=== PATIENT | male | born 1990 | race Caucasian/White ===

== ENCOUNTER 2017-03-20 17:26 | Emergency (ER) | payer OTHER ==
[2017-03-20 17:37] VITALS: BP 97/66
--- NOTE | 2017-03-20 18:33 | UC ---
Upper Extremity HPI - HPI Summary HPI Summary: The patient comes in today for: 1. Arm numbness with the left worse than the right and pain and only in his left arm: Onset: "a couple months"--worsening over the last 2-3 days. Palliative/provocative: Nothing makes the pain/numbness better or worse. Quality: aching, burning, tightness. Region: Upper extremities. Severity: 04/09 Time: Constant. Associated symptoms: Previous evaluation: He has not seen anyone for his arm problems. He has had lower back problems, but no one for his arm problems. 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 Medications: For his back, he takes Tramadol, Naproxen and baclofen. He states that he take a "stomach medication" also. * - History of Current Complaint Chief Complaint: UCBackPain Stated Complaint: LIMB NUMBNESS/ BURNING SENSATION Time Seen by Provider: 03/20/17 18:19 Hx Obtained From: Patient - Allergies/Home Medications Allergies/Adverse Reactions: Allergies Allergy/AdvReac Type Severity Reaction Status Date / Time Sulfa Drugs Allergy Severe Rash Verified 03/20/17 17:37 PMH/Surg Hx/FS Hx/Imm Hx Previously Healthy: No - Lower back pain. GI/ History: Gastroesophageal Reflux Other History Of: Negative For: HIV, Hepatitis B, Hepatitis C, Anticoagulant Therapy - Surgical History Surgical History: None Surgery Procedure, Year, and Place: appendectomy march 2016 - Family History Known Family History: Negative: Hypertension, Diabetes - Social History Occupation: Employed Full-time Alcohol Use: None Substance Use Type: None Smoking Status (MU): Light Every Day Tobacco Smoker Type: Cigarettes Amount Used/How Often: LESS THAN 1/2 PPD Length of Time of Smoking/Using Tobacco: 10 YRS Have You Smoked in the Last Year: Yes When Did the Patient Quit Smoking/Using Tobacco: "couple weeks ago" Household Exposure Type: Cigarettes - Immunization History Most Recent Influenza Vaccination: none Most Recent Tetanus Shot: WITHIN THE LAST 2 years Review of Systems Constitutional: Negative Skin: Negative Eyes: Negative ENT: Negative Respiratory: Negative Cardiovascular: Negative Gastrointestinal: Negative Genitourinary: Negative All Other Systems Reviewed And Are Negative: Yes Physical Exam Triage Information Reviewed: Yes Appearance: Well-Appearing, No Pain Distress, Well-Nourished Vital Signs: Initial Vital Signs Temp 98.2 F 03/20/17 17:30 Pulse 68 03/20/17 17:30 Resp 14 03/20/17 17:30 BP 97/66 03/20/17 17:30 Pulse Ox 98 03/20/17 17:30 Vital Signs Reviewed: Yes Eyes: Positive: Conjunctiva Clear. Negative: Discharge ENT: Positive: Hearing grossly normal. Negative: Pharyngeal erythema, Nasal congestion Dental: Negative: Gross Decay/Caries @, Dental Fracture @ Neck: Positive: Supple, Nontender, No Lymphadenopathy. Negative: Nuchal Rigidity Respiratory: Positive: Lungs clear, No respiratory distress, No accessory muscle use. Negative: Rhonchi, Wheezing Cardiovascular: Positive: RRR, No Murmur Abdomen Description: Positive: Nontender, No Organomegaly, Soft. Negative: Distended, Guarding, Peritoneal Signs Musculoskeletal: Positive: Strength Intact, ROM Intact, No Edema, Other: - Upper extremities. Thumbs up, pincher grasp and fist testing normal, strength of the biceps, triceps, and deltoid normal. DTR of the biceps and triceps and deltoid 2+/2 x 2. Full range of motion of the neck--flexion, extension, rotation and lateral flexion. Neurological: Positive: Alert Psychological: Positive: Age Appropriate Behavior. Negative: Consolable Skin: Negative: rashes, breakdown Upper Extremity Course/Dx - Course Course Of Treatment: Patient told of his diagnostic/treatment options. He is encouraged to see his primary care provider and a neurologist. If he gets worse , he is to go to the ER. Will start gabapentin. - Differential Dx/Diagnosis Provider Diagnoses: Bilateral arm numbness, weakness/rule out cervical herniated disk. Discharge - Discharge Plan Condition: Stable Disposition: HOME Patient Education Materials: Paresthesia (ED), Cervical Spinal Stenosis (ED) Referrals: Chante Rosado MD [Primary Care Provider] - As Soon As Possible (Please see your primary care provider as soon as you can.) Lucy Conroy MD [Medical Doctor] - As Soon As Possible (Please call Dr. Conroy's office as soon as you can for evaluation.)
== END 2017-03-20 19:14 | disposition home or self-care (01) ==
LOC: UCCORT 17:26
DX: M62.81 Muscle weakness (generalized) (principal); R20.0 Anesthesia of skin; M54.5 Low back pain; K21.9 Gastro-esophageal reflux disease without esophagitis; Z88.2 Allergy status to sulfonamides; F17.210 Nicotine dependence, cigarettes, uncomplicated
CPT/HCPCS: 99212; G0463

== ENCOUNTER 2017-05-13 17:07 | Emergency (ER) | payer OTHER ==
[2017-05-13 17:52] VITALS: BP 110/66
--- NOTE | 2017-05-13 18:02 | UC ---
Skin Complaint HPI - History of Current Complaint Chief Complaint: UCSkin Time Seen by Provider: 05/13/17 17:53 Stated Complaint: RT HAND SKIN COMPLAINT Hx Obtained From: Patient Onset/Duration: Gradual Onset - last 4 days increasing swelling and pain over the 4th finger. Wound on the cruz side., Worse Since - onset Onset Severity: Mild Current Severity: Moderate Location: Hand (Right) - 4th finger Character: Swelling, Pain, Redness Aggravating: Touch Alleviating: Nothing Associated Signs & Symptoms: Positive: Joint Swelling. Negative: Weakness, Fever, Chills, Drainage, Bruising, Red Streaks Related History: Trauma - possible on the finger - Allergy/Home Medications Allergies/Adverse Reactions: Allergies Allergy/AdvReac Type Severity Reaction Status Date / Time Sulfa Drugs Allergy Severe Rash Verified 05/13/17 17:46 Home Medications: Home Medications Baclofen TAB* [Lioresal TAB*] 10 mg PO TID 05/13/17 [History Confirmed 05/13/17] Pantoprazole TAB (NF) [Protonix TAB (NF)] 40 mg PO DAILY 05/13/17 [History Confirmed 05/13/17] Review of Systems All Other Systems Reviewed And Are Negative: Yes PMH/Surg Hx/FS Hx/Imm Hx Previously Healthy: Yes Other History Of: Negative For: HIV, Hepatitis B, Hepatitis C, Anticoagulant Therapy - Surgical History Surgical History: None Surgery Procedure, Year, and Place: appendectomy march 2016 - Family History Known Family History: Positive: Cardiac Disease Negative: Hypertension, Diabetes - Social History Occupation: Employed Full-time Lives: With Family Alcohol Use: None Substance Use Type: None Smoking Status (MU): Heavy Every Day Tobacco Smoker Type: Cigarettes Amount Used/How Often: 1/2 PPD Length of Time of Smoking/Using Tobacco: 10 YRS Have You Smoked in the Last Year: Yes When Did the Patient Quit Smoking/Using Tobacco: "couple weeks ago" Household Exposure Type: Cigarettes - Immunization History Most Recent Influenza Vaccination: none Most Recent Tetanus Shot: WITHIN THE LAST 2 years Physical Exam Triage Information Reviewed: Yes Appearance: Well-Appearing, No Pain Distress, Well-Nourished Vital Signs: Initial Vital Signs Temp 98.8 F 05/13/17 17:47 Pulse 62 05/13/17 17:47 Resp 16 05/13/17 17:47 BP 110/66 05/13/17 17:47 Pulse Ox 98 05/13/17 17:47 Vital Signs Reviewed: Yes Eyes: Positive: Conjunctiva Clear Neck exam: Normal Respiratory Exam: Normal Cardiovascular Exam: Normal Musculoskeletal: Positive: ROM Limited @ - right 4th finger with swelling and tenderness. Neurological Exam: Normal Psychological Exam: Normal Skin: Positive: Other - small open wound over the PIP ventrally Course/Dx - Differential Diagnoses - Skin Complaint Differential Diagnoses: Abscess, Cellulitis, Impetigo, Lymphangitis - Diagnoses Provider Diagnoses: cellulitis right hand Discharge - Discharge Plan Condition: Stable Disposition: HOME Prescriptions: Cephalexin CAP* [Keflex 500 CAP*] 500 mg PO QID #40 cap Patient Education Materials: Cellulitis (ED), Cephalexin (By mouth) Additional Instructions: Do warm packs to help get rid of the infection.
[2017-05-13] MEDS ORDERED: Cephalexin CAP* 500 MG PO ONE ×2 (18:05→18:13)
[2017-05-13] MEDS ORDERED: ceFUROXime TAB(*) 250 MG PO ONE (18:10)
== END 2017-05-13 18:28 | disposition home or self-care (01) ==
LOC: UCCORT 17:07
DX: L03.011 Cellulitis of right finger (principal); F17.210 Nicotine dependence, cigarettes, uncomplicated
CPT/HCPCS: 99212; A9270-GY; G0463

== ENCOUNTER 2018-01-16 15:54 | Emergency (ER) | payer OTHER ==
[2018-01-16 16:22] VITALS: BP 119/75
--- NOTE | 2018-01-16 17:17 | UC ---
Back Pain HPI - HPI Summary HPI Summary: 27 yo male with chronic LBP due to DDD and spinal stenosis He has not had imaging for around 3 yrs Miss his last appt with specialist 5 days of worsening symptom increased back pain numbness and tingling of both leg Feels like he has to urinate but has his has marked trouble initiating stream legs now occasionally buckle - History of Current Complaint Chief Complaint: UCBackPain Stated Complaint: BACK COMP Time Seen by Provider: 01/16/18 16:24 Onset/Duration: Gradual Onset, Worse Since - 5 days Timing: Constant Severity Initially: Severe Severity Currently: Severe Pain Intensity: 8 Pain Scale Used: 0-10 Numeric Back Pain: Is Diffuse, Radiates To - numbness tingling both legs Character: Throbbing Aggravating Factor(s): Movement, Lifting, Bending, Walking Alleviating Factor(s): Nothing Associated Signs And Symptoms: Positive: Numbness, Tingling, Pain with Weight Bearing. Negative: Bladder Incontinence, Bowel Incontinence - Allergies/Home Medications Allergies/Adverse Reactions: Allergies Allergy/AdvReac Type Severity Reaction Status Date / Time Sulfa (Sulfonamide Allergy Rash Verified 01/16/18 16:22 Antibiotics) Home Medications: Home Medications Gabapentin [Neurontin] 100 mg PO Q8H 01/16/18 [History Confirmed 01/16/18] PMH/Surg Hx/FS Hx/Imm Hx Previously Healthy: Yes Other History Of: Negative For: HIV, Hepatitis B, Hepatitis C, Anticoagulant Therapy - Surgical History Surgical History: None Surgery Procedure, Year, and Place: appendectomy march 2016 - Family History Known Family History: Positive: Cardiac Disease Negative: Hypertension, Diabetes - Social History Alcohol Use: None Substance Use Type: None Smoking Status (MU): Heavy Every Day Tobacco Smoker Type: Cigarettes Amount Used/How Often: 1/2 PPD Length of Time of Smoking/Using Tobacco: 10 YRS Have You Smoked in the Last Year: Yes When Did the Patient Quit Smoking/Using Tobacco: "couple weeks ago" Household Exposure Type: Cigarettes - Immunization History Most Recent Influenza Vaccination: none Most Recent Tetanus Shot: WITHIN THE LAST 2 years Review of Systems Constitutional: Negative Skin: Negative Eyes: Negative ENT: Negative Respiratory: Negative Cardiovascular: Negative Gastrointestinal: Negative Genitourinary: Negative Motor: Negative Neurovascular: Negative Musculoskeletal: Arthralgia, Myalgia Neurological: Paresthesia Psychological: Negative Is Patient Immunocompromised?: No All Other Systems Reviewed And Are Negative: Yes Physical Exam Triage Information Reviewed: Yes Appearance: Well-Appearing, Well-Nourished, Pain Distress Vital Signs: Initial Vital Signs Temp 97.5 F 01/16/18 16:18 Pulse 75 01/16/18 16:18 Resp 16 01/16/18 16:18 BP 119/75 01/16/18 16:18 Pulse Ox 100 01/16/18 16:18 Eyes: Positive: Conjunctiva Clear Neck: Positive: Supple, Nontender, No Lymphadenopathy Respiratory: Positive: Lungs clear, Normal breath sounds, No respiratory distress, No accessory muscle use Cardiovascular: Positive: RRR, No Murmur, Pulses Normal Neurological: Positive: Alert, Other: - knee jerks- hyperreflexic ankle clonus toes down going Psychological Exam: Normal Back Pain Course/Dx - Course Course Of Treatment: I relayed my concerns to pt of cental cord syndrome. He needs to drive his daughter home and then will go to the ER. to [facility] ER. Triage center notified. PT declines EMS - Differential Dx/Diagnosis Provider Diagnoses: 1. DDD. 2. SPINAL STENOSIS. 2. CONCERN OF CENTRAL CORD SYNDROME Discharge - Sign-Out/Discharge Documenting (check all that apply): Discharge - Discharge Plan Condition: Stable [facility] Referrals: Chante Rosado MD [Primary Care Provider] - Additional Instructions: You need imaging of your back that we can not do her You may have central cord syndrome Please go to [facility] ER now - Billing Disposition and Condition Condition: STABLE Disposition: EMTALA
== END 2018-01-16 17:11 | disposition short-term general hospital (02) ==
LOC: UCCORT 15:54
DX: M51.36 Other intervertebral disc degeneration, lumbar region (principal); Z87.891 Personal history of nicotine dependence; M48.061 Spinal stenosis, lumbar region without neurogenic claudication; Z88.2 Allergy status to sulfonamides
CPT/HCPCS: 99212; G0463

== ENCOUNTER 2018-01-18 14:28 | Emergency (ER) | payer OTHER ==
[2018-01-18] MEDS ORDERED: predniSONE TAB* 20 MG PO ONE (15:20)
--- NOTE | 2018-01-18 15:29 | ED ---
Back Pain - HPI Summary HPI Summary: C/O "LEGS GIVING OUT", MILD TINGLING AND ACHE IN BILAT LEGS, "BUMP" ON LOWER BACK, HAVING TO PUSH WHEN URINATING X 1 WEEK. HX OF INTERMITTENT LEGS GIVING OUT X 2 YRS, BUT STATES GETTING MORE FREQ. HX OF CHRONIC BACK PAIN, SPINAL STENOSIS, MILD DEGENERATIVE DISC DZ. WENT TO [facility] 2 DAYS AGO, ADVISED TO GO TO ED. MRI DONE [facility] ED 01/16/18 NEG FOR CAUDA EQUINA, ACUTE FX, SPINAL CORD COMPRESSION. DX WITH MUSCLE SPASM, GIVEN RX FOR VALUIM. PT HAS APPT WITH [facility] IN [place] THIS COMING SUNDAY. PT CAME INTO TO ED TODAY FOR LEGS GIVING OUT AGAIN. DENIES LOSS OF SENSATION IN BILAT LEGS. URINATED TODAY, BUT STATES HE HAS TO "PUSH". DENIES TRAUMA, FEVER, N/V, CP, SOB, ABDO PAIN, CHANGE IN BM. MED HX = SPINAL STENOSIS, DDD. PT BROUGHT IN D/C REPORT FROM [facility] ED. - History of Current Complaint Chief Complaint: EDBackInjuryPain Stated Complaint: BACK PAIN Time Seen by Provider: 01/18/18 14:50 Hx Obtained From: Patient Onset/Duration: Gradual Onset Onset/Duration: Still Present Timing: Intermittent Severity Initially: Moderate Pain Intensity: 8 Character: Aching Aggravating Symptom(s): Walking Alleviating Symptom(s): Nothing Associated Signs And Symptoms: Positive: Weakness, Tingling. Negative: Swelling , Redness, Fever, Numbness, Abdominal Pain, Flank Pain, Bladder Incontinence, Bowel Incontinence, Weight Loss - Risk Factors Cauda Equina Risk Factors: Bladder Dysfunction, Lower Extremity Weakness Epidural Abscess Risk Factors: Lower Extremity Weakness - Allergies/Home Medications Allergies/Adverse Reactions: Allergies Allergy/AdvReac Type Severity Reaction Status Date / Time Sulfa (Sulfonamide Allergy Rash Verified 01/18/18 14:30 Antibiotics) PMH/Surg Hx/FS Hx/Imm Hx Endocrine/Hematology History: Denies: Hx Anticoagulant Therapy, Hx Diabetes, Hx Thyroid Disease Cardiovascular History: Denies: Hx Hypertension Respiratory History: Denies: Hx Chronic Obstructive Pulmonary Disease (COPD), Hx Lung Cancer Comment Only: Hx Asthma - He has used inhalers before--last time a year ago. GI History: Denies: Hx Gall Bladder Disease, Hx Gastrointestinal Bleed, Hx Ulcer, Hx Urosepsis History: Denies: Hx Kidney Stones, Hx Renal Disease Neurological History: Denies: Hx Dementia, Hx Migraine, Hx Seizures, Hx Transient Ischemic Attacks (TIA) Psychiatric History: Denies: Hx Anxiety, Hx Depression, Hx Schizophrenia, Hx Bipolar Disorder - Surgical History Surgery Procedure, Year, and Place: appendectomy march 2016 Infectious Disease History: No Infectious Disease History: Denies: Hx Hepatitis, Hx Human Immunodeficiency Virus (HIV), Traveled Outside the [place] in Last 30 Days - Family History Known Family History: Positive: None, Cardiac Disease Negative: Hypertension, Diabetes - Social History Alcohol Use: None Substance Use Type: Reports: None Smoking Status (MU): Heavy Every Day Tobacco Smoker Type: Cigarettes Amount Used/How Often: 1/2 PPD Length of Time of Smoking/Using Tobacco: 10 YRS Have You Smoked in the Last Year: Yes Review of Systems Constitutional: Negative Eyes: Negative ENT: Negative Cardiovascular: Negative Respiratory: Negative Gastrointestinal: Negative Positive: dysuria Positive: Myalgia Skin: Negative Neurological: Negative Psychological: Normal All Other Systems Reviewed And Are Negative: No Physical Exam Triage Information Reviewed: Yes Vital Signs On Initial Exam: Initial Vitals Temp Pulse Resp BP Pulse Ox 98.3 F 66 16 122/50 98 01/18/18 14:30 01/18/18 14:30 01/18/18 14:30 01/18/18 14:30 01/18/18 14:30 Vital Signs Reviewed: Yes Appearance: Positive: Well-Appearing Skin: Positive: Warm Head/Face: Positive: Normal Head/Face Inspection Eyes: Positive: Normal ENT: Positive: Normal ENT inspection Neck: Positive: Supple Respiratory/Lung Sounds: Positive: Clear to Auscultation Cardiovascular: Positive: Normal Abdomen Description: Positive: Nontender Neurological: Positive: Sensory/Motor Intact, Other - PMS INTACT BILATERAL LE. HIP AND KNEE FLEXION AND EXT INTACT BILAT. PLANTAR FELXION AND DORSIFELXION INTATC BILAT. ABLE TO STAND AND AMBULATE. DENIES LOSS OF SENSATION. Psychiatric: Positive: Normal AVPU Assessment: Alert - Kathi Coma Scale Best Eye Response: 4 - Spontaneous Best Motor Response: 6 - Obeys Commands Best Verbal Response: 5 - Oriented Coma Scale Total: 15 Diagnostics - Vital Signs Vital Signs Temp Pulse Resp BP Pulse Ox 01/18/18 14:30 98.3 F 66 16 122/50 98 - Laboratory Lab Statement: Any lab studies that have been ordered have been reviewed, and results considered in the medical decision making process. Back Pain Course/Dx - Diagnoses Differential Diagnosis/HQI/PQRI: Positive: Cauda Equina Syndrome, Compressive Cord Syndrome, Epidural Abscess, Herniated Disc, Strain Provider Diagnoses: Muscle spasm Discharge - Sign-Out/Discharge Documenting (check all that apply): Discharge - Discharge Plan Condition: Stable Disposition: HOME Referrals: Chante Rosado MD [Primary Care Provider] - - Billing Disposition and Condition Condition: STABLE Disposition: HOME
[2018-01-18 16:11] LABS: Urine Appearance Clear; Urine Blood Negative (Negative); Urine Color Yellow; Urine Ketones Negative (Negative); Urine Protein Negative (Negative); Urine Specific Gravity 1.009 (1.010-1.030); Urine Urobilinogen Negative (Negative)
[2018-01-18 16:48] VITALS: BP 117/76
== END 2018-01-18 16:47 | disposition home or self-care (01) ==
LOC: ED 14:28
DX: M54.5 Low back pain (principal); M54.9 Dorsalgia, unspecified; F17.210 Nicotine dependence, cigarettes, uncomplicated; R30.0 Dysuria; M62.838 Other muscle spasm
CPT/HCPCS: 81003; 99282; J7512

== ENCOUNTER 2019-01-25 16:31 | Emergency (ER) | payer OTHER ==
[2019-01-25 17:09] VITALS: BP 101/75
--- NOTE | 2019-01-25 17:45 | ED ---
GI/ HPI - HPI Summary HPI Summary: 28 yo WM p/w loose stools only, 4-5 episodes per day x 3 days with son at home with same exact sx, denies f/c/n/v. Diarrhea is non- bloody and is formed. - History of Current Complaint Chief Complaint: UCGI Time Seen by Provider: 01/25/19 17:16 Stated Complaint: DIARRHEA,TIRED,BACK PAIN,INTERMITTENT CP Hx Obtained From: Patient Timing: Constant Severity: Mild Current Severity: Moderate Pain Intensity: 2 - Allergy/Home Medications Allergies/Adverse Reactions: Allergies Allergy/AdvReac Type Severity Reaction Status Date / Time Sulfa (Sulfonamide Allergy Rash Verified 01/25/19 17:02 Antibiotics) PMH/Surg Hx/FS Hx/Imm Hx Previously Healthy: Yes Endocrine/Hematology History: Denies: Hx Anticoagulant Therapy, Hx Diabetes, Hx Thyroid Disease Cardiovascular History: Denies: Hx Hypertension Respiratory History: Denies: Hx Asthma - He has used inhalers before--last time a year ago., Hx Chronic Obstructive Pulmonary Disease (COPD), Hx Lung Cancer GI History: Denies: Hx Gall Bladder Disease, Hx Gastrointestinal Bleed, Hx Ulcer, Hx Urosepsis History: Denies: Hx Kidney Stones, Hx Renal Disease Neurological History: Denies: Hx Dementia, Hx Migraine, Hx Seizures, Hx Transient Ischemic Attacks (TIA) Psychiatric History: Denies: Hx Anxiety, Hx Depression, Hx Schizophrenia, Hx Bipolar Disorder - Surgical History Surgery Procedure, Year, and Place: appendectomy march 2016 Infectious Disease History: No Infectious Disease History: Denies: Hx Hepatitis, Hx Human Immunodeficiency Virus (HIV), Traveled Outside the [place] in Last 30 Days - Family History Known Family History: Positive: None, Cardiac Disease Negative: Hypertension, Diabetes - Social History Alcohol Use: None Substance Use Type: Reports: None Smoking Status (MU): Heavy Every Day Tobacco Smoker Type: Cigarettes Amount Used/How Often: 1/2 PPD Length of Time of Smoking/Using Tobacco: 10 YRS Have You Smoked in the Last Year: Yes Review of Systems - ROS Summary Review of Systems Summary: Constitutional: Negative Eyes: Negative ENT: Negative Cardiovascular: Negative Respiratory: Negative Gastrointestinal:loose stool Genitourinary: Negative Musculoskeletal: Negative Skin: Negative Neurological: Negative Psychological: Normal All Other Systems Reviewed And Are Negative: Yes Physical Exam - Summary Physical Exam Summary: Appearance: Positive: No Pain Distress Skin: Positive: Warm Head/Face: Positive: Normal Head/Face Inspection Eyes: Positive: Normal ENT: Positive: Normal ENT inspection Neck: Positive: Supple Respiratory/Lung Sounds: Positive: Clear to Auscultation. Cardiovascular: Positive: Normal, RRR, S1, S2 Abdomen : soft, NT/ND Musculoskeletal: Positive: Normal, Strength/ROM Intact Neurological: Positive: CN Intact II-III Vital Signs On Initial Exam: Initial Vitals Temp Pulse Resp BP Pulse Ox 36.6 C 104 16 101/75 99 01/25/19 17:03 01/25/19 17:03 01/25/19 17:03 01/25/19 17:03 01/25/19 17:03 Diagnostics - Vital Signs Vital Signs Temp Pulse Resp BP Pulse Ox 01/25/19 17:03 36.6 C 104 16 101/75 99 - Laboratory Lab Statement: Any lab studies that have been ordered have been reviewed, and results considered in the medical decision making process. GIGU Course/Dx - Diagnoses Provider Diagnoses: Diarrhea Discharge - Sign-Out/Discharge Documenting (check all that apply): Patient Departure All imaging exams completed and their final reports reviewed: No Studies - Discharge Plan Condition: Stable Disposition: HOME Prescriptions: Diphenoxylat/Atrop 2.5-0.025M* [Lomotil TAB*] 1 tab PO BID 3 Days #6 tab MDD 2 Patient Education Materials: Acute Diarrhea (ED) Referrals: Clarissa Medellin NP [Primary Care Provider] - Additional Instructions: Please call [facility] to manage your medications if needed [address] [place], [place] [id number] - Billing Disposition and Condition Condition: STABLE Disposition: Home
== END 2019-01-25 17:56 | disposition home or self-care (01) ==
LOC: UCCORT 16:31
DX: R19.7 Diarrhea, unspecified (principal); F17.210 Nicotine dependence, cigarettes, uncomplicated; Z88.2 Allergy status to sulfonamides
CPT/HCPCS: 99212; G0463